=== PATIENT | male | born 1970 | race Caucasian/White ===

== ENCOUNTER 2021-07-14 09:38 | Inpatient (IN) | payer MEDICAID, OTHER ==
[~2021-07-14] VITALS: Ht 157.5 cm; Wt 41.7 kg
[2021-07-14] MEDS ORDERED: SODIUM CHLORIDE 0.9% 1000ML BAG (SEPSIS BOLUS) IV ONE (09:45)
[2021-07-14 10:07] LABS: HEMATOCRIT. 31.4 % (42.0-52.0); HEMOGLOBIN. 9.8 g/dL (14.0-18.0); MEAN CORPUSCULAR HEMOGLOBIN 26.8 pg (28.0-32.0); MEAN CORPUSCULAR VOLUME 85.5 fL (80.0-94.0); MEAN PLATELET VOLUME 7.7 fl (7.4-10.4); PLATELET 491 x1000/uL (130-400); RED BLOOD CELL COUNT 3.67 mill/uL (4.7-6.1); RED CELL DISTRIBUTION WIDTH 16.6 % (11.6-14.6)
[2021-07-14 10:14] LABS: CHLORIDE 88 mEq/L (98-107)
[2021-07-14 10:18] LABS: INR 1.2
[2021-07-14 10:22] LABS: CREATINE KINASE 80 IU/L (39-308)
[2021-07-14 10:40] LABS: PLATELET ESTIMATE INCREASED
[2021-07-14] MEDS ORDERED: PIPERACILLIN/TAZ 3.375G PREMIX 50 ML IV ONE (10:45)
[2021-07-14] MEDS ORDERED: VANCOMYCIN 1G PREMIX 200 ML IV ONE (10:45)
[2021-07-14] MEDS ORDERED: INSULIN REGULAR (HUMULIN R) 300UNITS/3ML VIAL IV ONE (11:45)
[2021-07-14 13:00] LABS: CLARITY URINE CLEAR (CLEAR); COLOR URINE YELLOW (YELLOW); KETONES URINE 1+ (NEGATIVE); LEUKOCYTE ESTERASE URINE 2+ (NEGATIVE); NITRITE URINE POSITIVE (NEGATIVE); OCCULT BLOOD URINE 2+ (NEGATIVE); PH URINE 5.5 (4.5-8.0); PROTEIN URINE 1+ (NEGATIVE); SPECIFIC GRAVITY URINE 1.017 (1.005-1.030); UROBILINOGEN URINE 0.2 E.U./dL (0.2-1.0)
[2021-07-14] MEDS ORDERED: ONDANSETRON HCL 4MG/2ML INJ IV PRN (14:15)
[2021-07-14] MEDS ORDERED: DOCUSATE SODIUM 100MG CAPSULE PO PRN (14:15)
[2021-07-14] MEDS ORDERED: MAGNESIUM/ALUMINUM HYDROXIDE/SIMETHICONE 30ML UDC PO PRN (14:15)
[2021-07-14] MEDS ORDERED: NITROGLYCERIN 0.4MG TABLET SL SL PRN (14:15)
[2021-07-14] MEDS ORDERED: IPRATROPIUM/ALBUTEROL 0.5-3(2.5)MG/3ML NEB NEB PRN (14:15)
[2021-07-14] MEDS ORDERED: GUAIFENESIN 200MG/10ML SUGAR FREE UDC PO PRN (14:15)
[2021-07-14] MEDS ORDERED: CLONIDINE 0.1MG TABLET PO PRN (14:15)
[2021-07-14] MEDS ORDERED: ZOLPIDEM TARTRATE 5MG TABLET PO PRN (14:15)
[2021-07-14] MEDS ORDERED: KETOROLAC 15MG/ML VIAL IV PRN (14:15)
[2021-07-14] MEDS ORDERED: DEXTROSE 50% WATER 50ML SYRINGE IV PRN (14:15)
[2021-07-14 14:51] LABS: T4 FREE 1.27 ng/dL (0.76-1.46)
[2021-07-14] MEDS: SODIUM CHLORIDE 0.9% 1,000 ML IV SCH (15:00)
[2021-07-14 15:05] LABS: FOLIC ACID (FOLATE) SERUM 17.5 ng/mL (>5.38)
[2021-07-14] MEDS ORDERED: ENOXAPARIN 40MG/0.4ML SYR SUBCUT SCH (15:30)
[2021-07-14] MEDS: INSULIN LISPRO 100 UNITS/ML SUBCUT SCH ×2 (18:20→21:00)
[2021-07-14] MEDS: BLOOD SUGAR DIAGNOSTIC STRIP TEST SCH ×2 (18:30→21:44)
[2021-07-14] MEDS: ASCORBIC ACID 500 MG TABLET PO SCH (21:51)
[2021-07-14] MEDS: FAMOTIDINE 20MG TABLET PO SCH (21:51)
[2021-07-14 22:00] VITALS: BP 143/85
[2021-07-14] MEDS ORDERED: PIPERACILLIN/TAZ 3.375G PREMIX 50 ML IV SCH (22:00)
[2021-07-14] MEDS ORDERED: VANCOMYCIN 500MG PREMIX 100 ML IV SCH (23:00)
[2021-07-15] VITALS: BP 121/73
[2021-07-15] MEDS: SODIUM CHLORIDE 0.9% 1,000 ML IV SCH ×3 (00:09→22:10)
[2021-07-15] MEDS: INSULIN GLARGINE 100 UNITS/ML SUBCUT SCH ×2 (00:24→23:36)
[2021-07-15 01:13] LABS: CREATINE KINASE 60 IU/L (39-308)
[2021-07-15 01:14] LABS: CREATINE KINASE MB FRACTION < 1.0 ng/mL (0.5-3.6)
[2021-07-15 04:00] VITALS: BP 127/78
[2021-07-15] MEDS: BLOOD SUGAR DIAGNOSTIC STRIP TEST SCH ×4 (06:04→21:30)
[2021-07-15] MEDS: INSULIN LISPRO 100 UNITS/ML SUBCUT SCH ×4 (06:04→22:13)
[2021-07-15 06:10] LABS: HEMATOCRIT. 25.4 % (42.0-52.0); HEMOGLOBIN. 8.4 g/dL (14.0-18.0); MEAN CORPUSCULAR HEMOGLOBIN 26.3 pg (28.0-32.0); MEAN CORPUSCULAR VOLUME 79.8 fL (80.0-94.0); MEAN PLATELET VOLUME 7.7 fl (7.4-10.4); PLATELET 393 x1000/uL (130-400); RED BLOOD CELL COUNT 3.18 mill/uL (4.7-6.1); RED CELL DISTRIBUTION WIDTH 16.2 % (11.6-14.6)
[2021-07-15 06:17] LABS: CHLORIDE 103 mEq/L (98-107)
[2021-07-15 06:28] LABS: PHOSPHORUS 2.1 mg/dL (2.5-4.9)
[2021-07-15 06:31] LABS: CREATINE KINASE 38 IU/L (39-308)
[2021-07-15 06:33] LABS: CREATINE KINASE MB FRACTION < 1.0 ng/mL (0.5-3.6)
[2021-07-15 07:58] LABS: *AMPHETAMINES SCREEN URINE NEGATIVE (NEGATIVE); *BARBITURATES SCREEN URINE NEGATIVE (NEGATIVE); *BENZODIAZEPINES SCREEN URINE NEGATIVE (NEGATIVE); METHADONE URINE SCREEN NEGATIVE (NEGATIVE); OPIATES URINE SCREEN NEGATIVE (NEGATIVE)
[2021-07-15 07:59] LABS: *COCAINE SCREEN URINE NEGATIVE (NEGATIVE); CANNABINOID URINE SCREEN NEGATIVE (NEGATIVE); PHENCYCLIDINE URINE SCREEN NEGATIVE (NEGATIVE)
[2021-07-15] MEDS: PIPERACILLIN/TAZOBACTAM 3.375 G in DEXTROSE 5% WATER 50 ML IV SCH ×3 (07:59→22:11)
[2021-07-15 08:00] VITALS: BP 120/78
[2021-07-15] MEDS: ZINC SULFATE 220 MG ( 50 ) CAPSULE PO SCH (08:01)
[2021-07-15] MEDS: ASPIRIN 325MG EC TABLET PO SCH (08:02)
[2021-07-15] MEDS: FAMOTIDINE 20MG TABLET PO SCH ×2 (08:02→22:10)
[2021-07-15] MEDS: ASCORBIC ACID 500 MG TABLET PO SCH ×2 (08:02→22:10)
[2021-07-15] MEDS: CHOLECALCIFEROL (D3) 1000 UNIT TABLET PO SCH (08:02)
[2021-07-15] MEDS: ENOXAPARIN 30MG/0.3ML SYR SUBCUT SCH (08:03)
[2021-07-15 08:51] LABS: PLATELET ESTIMATE NORMAL
[2021-07-15 12:00] VITALS: BP 125/80
[2021-07-15] MEDS: VANCOMYCIN 500MG PREMIX 100 ML IV SCH ×2 (12:37→18:14)
[2021-07-15 16:00] VITALS: BP 128/77
[2021-07-15] MEDS ORDERED: INFLUENZA VACCINE 05/PF 0.5 ML SYRINGE IM ONE (16:45)
[2021-07-15] MEDS ORDERED: PNEUMOCOCCAL 23-VAL P-SAC VAC 0.5 ML IM ONE (16:45)
[2021-07-15] MEDS ORDERED: POTASSIUM CHLORIDE 20MEQ TABLET SR PO NR (18:30)
[2021-07-15 20:00] VITALS: BP 121/68
[2021-07-16] VITALS: BP 128/70
[2021-07-16] MEDS: VANCOMYCIN 500MG PREMIX 100 ML IV SCH ×2 (01:30→10:17)
[2021-07-16 04:00] VITALS: BP 134/78
[2021-07-16] MEDS: PIPERACILLIN/TAZOBACTAM 3.375 G in DEXTROSE 5% WATER 50 ML IV SCH ×2 (05:28→14:29)
[2021-07-16] MEDS: BLOOD SUGAR DIAGNOSTIC STRIP TEST SCH ×4 (05:36→21:08)
[2021-07-16] MEDS: INSULIN LISPRO 100 UNITS/ML SUBCUT SCH ×4 (05:39→21:08)
[2021-07-16 06:50] LABS: HEMATOCRIT. 22.5 % (42.0-52.0); HEMOGLOBIN. 7.3 g/dL (14.0-18.0); MEAN CORPUSCULAR HEMOGLOBIN 25.8 pg (28.0-32.0); MEAN CORPUSCULAR VOLUME 79.2 fL (80.0-94.0); MEAN PLATELET VOLUME 7.2 fl (7.4-10.4); PLATELET 304 x1000/uL (130-400); RED BLOOD CELL COUNT 2.84 mill/uL (4.7-6.1); RED CELL DISTRIBUTION WIDTH 16.1 % (11.6-14.6)
[2021-07-16 07:24] LABS: CHLORIDE 102 mEq/L (98-107)
[2021-07-16 08:00] VITALS: BP 118/67
[2021-07-16] MEDS: FAMOTIDINE 20MG TABLET PO SCH ×2 (08:21→20:55)
[2021-07-16] MEDS: ZINC SULFATE 220 MG ( 50 ) CAPSULE PO SCH (08:21)
[2021-07-16] MEDS: ASCORBIC ACID 500 MG TABLET PO SCH ×2 (08:21→20:55)
[2021-07-16] MEDS: CHOLECALCIFEROL (D3) 1000 UNIT TABLET PO SCH (08:21)
[2021-07-16] MEDS: ASPIRIN 325MG EC TABLET PO SCH (08:21)
[2021-07-16] MEDS: ENOXAPARIN 30MG/0.3ML SYR SUBCUT SCH (08:22)
[2021-07-16 09:47] LABS: PLATELET ESTIMATE NORMAL
[2021-07-16] MEDS: SODIUM CHLORIDE 0.9% 1,000 ML IV SCH ×2 (10:17→15:49)
[2021-07-16] MEDS ORDERED: POTASSIUM CHLORIDE 20MEQ TABLET SR PO NR (11:30)
[2021-07-16] MEDS ORDERED: POTASSIUM CHLORIDE INJ 40 MEQ in DEXT 5% WATER 250 ML IV ONE (11:30)
[2021-07-16 12:05] VITALS: BP 127/70
[2021-07-16] MEDS: KCL 20MEQ/100ML X 2 FOR TOTAL KCL 40MEQ/200ML IV SCH ×2 (15:48→17:31)
[2021-07-16 16:00] VITALS: BP 127/80
[2021-07-16 20:00] VITALS: BP 132/77
[2021-07-16] MEDS: CEFAZOLIN 2,000 MG in DEXT 5% WATER 100 ML IV SCH (20:55)
[2021-07-16] MEDS: INSULIN GLARGINE 100 UNITS/ML SUBCUT SCH (23:00)
[2021-07-17] VITALS: BP 113/64
[2021-07-17] MEDS ORDERED: VANCOMYCIN 500MG PREMIX 100 ML IV SCH
[2021-07-17] MEDS: SODIUM CHLORIDE 0.9% 1,000 ML IV SCH ×2 (02:27→21:20)
[2021-07-17 04:00] VITALS: BP 131/80
[2021-07-17] MEDS: CEFAZOLIN 2,000 MG in DEXT 5% WATER 100 ML IV SCH ×3 (05:24→21:34)
[2021-07-17] MEDS: BLOOD SUGAR DIAGNOSTIC STRIP TEST SCH ×4 (05:46→21:34)
[2021-07-17] MEDS: INSULIN LISPRO 100 UNITS/ML SUBCUT SCH ×4 (05:46→21:00)
[2021-07-17 07:51] LABS: CHLORIDE 101 mEq/L (98-107)
[2021-07-17 08:00] VITALS: BP 142/92
[2021-07-17 08:38] LABS: HEMATOCRIT. 23.8 % (42.0-52.0); MEAN CORPUSCULAR HEMOGLOBIN 26.8 pg (28.0-32.0); MEAN PLATELET VOLUME 7.7 fl (7.4-10.4); PLATELET 342 x1000/uL (130-400); RED BLOOD CELL COUNT 2.98 mill/uL (4.7-6.1); RED CELL DISTRIBUTION WIDTH 15.8 % (11.6-14.6)
[2021-07-17] MEDS: CHOLECALCIFEROL (D3) 1000 UNIT TABLET PO SCH (08:49)
[2021-07-17] MEDS: ASPIRIN 325MG EC TABLET PO SCH (08:49)
[2021-07-17] MEDS: ZINC SULFATE 220 MG ( 50 ) CAPSULE PO SCH (08:49)
[2021-07-17] MEDS: ASCORBIC ACID 500 MG TABLET PO SCH ×2 (08:49→21:20)
[2021-07-17] MEDS: FAMOTIDINE 20MG TABLET PO SCH ×2 (08:49→21:20)
[2021-07-17] MEDS: ACETAMINOPHEN 325MG TABLET PO PRN (08:49)
[2021-07-17] MEDS: ENOXAPARIN 30MG/0.3ML SYR SUBCUT SCH (08:50)
[2021-07-17] MEDS ORDERED: POTASSIUM CHLORIDE 20MEQ/PACKET PO SCH (10:00)
[2021-07-17 12:00] VITALS: BP 136/88
[2021-07-17] MEDS ORDERED: POTASSIUM PHOS,M-BASIC-D-BASIC 20 MMOL in DEXT 5% WATER 250 ML IV SCH (12:00)
[2021-07-17 12:05] LABS: PLATELET ESTIMATE NORMAL
[2021-07-17 13:07] LABS: A/G RATIO 0.3 (0.7-1.7); ALBUMIN 1.7 g/dL (2.9-4.4); ALPHA-1-GLOBULIN 0.4 g/dL (0.0-0.4); ALPHA-2-GLOBULIN 0.8 g/dL (0.4-1.0); BETA GLOBULIN 1.1 g/dL (0.7-1.3); GAMMA GLOBULINS 2.9 g/dL (0.4-1.8); GLOBULIN TOTAL 5.3 g/dL (2.2-3.9); M-SPIKE Not Observed g/dL (Not Observed)
[2021-07-17 16:00] VITALS: BP 114/70
[2021-07-17 20:00] VITALS: BP 121/74
[2021-07-17] MEDS: INSULIN GLARGINE 100 UNITS/ML SUBCUT SCH (21:32)
[2021-07-18] VITALS: BP 133/77
[2021-07-18 04:00] VITALS: BP 116/71
[2021-07-18] MEDS: CEFAZOLIN 2,000 MG in DEXT 5% WATER 100 ML IV SCH ×3 (05:52→22:20)
[2021-07-18] MEDS: BLOOD SUGAR DIAGNOSTIC STRIP TEST SCH ×4 (06:03→20:30)
[2021-07-18] MEDS: INSULIN LISPRO 100 UNITS/ML SUBCUT SCH ×4 (06:03→20:30)
[2021-07-18 06:13] LABS: HIV SCREEN 4G Non Reactive (Non Reactive)
[2021-07-18 07:04] LABS: BASOPHILS % 0.2 % (0.0-2.0); EOSINOPHILS % 0.5 % (0.0-5.0); HEMATOCRIT. 23.1 % (42.0-52.0); HEMOGLOBIN. 7.8 g/dL (14.0-18.0); LYMPHOCYTES % 11.8 % (20.0-50.0); MEAN CORPUSCULAR HEMOGLOBIN 26.9 pg (28.0-32.0); MEAN CORPUSCULAR VOLUME 79.3 fL (80.0-94.0); MEAN PLATELET VOLUME 7.2 fl (7.4-10.4); MONOCYTES % 9.1 % (2.0-8.0); NEUTROPHILS % 78.4 % (40.0-76.0); PLATELET 356 x1000/uL (130-400); RED BLOOD CELL COUNT 2.91 mill/uL (4.7-6.1); RED CELL DISTRIBUTION WIDTH 16.1 % (11.6-14.6)
[2021-07-18 07:42] LABS: CHLORIDE 104 mEq/L (98-107)
[2021-07-18 07:51] LABS: PHOSPHORUS 2.1 mg/dL (2.5-4.9)
[2021-07-18 08:00] VITALS: BP 124/72
[2021-07-18] MEDS: SODIUM CHLORIDE 0.9% 1,000 ML IV SCH ×2 (08:14→17:16)
[2021-07-18] MEDS: ZINC SULFATE 220 MG ( 50 ) CAPSULE PO SCH (08:15)
[2021-07-18] MEDS: ASPIRIN 325MG EC TABLET PO SCH (08:15)
[2021-07-18] MEDS: CHOLECALCIFEROL (D3) 1000 UNIT TABLET PO SCH (08:15)
[2021-07-18] MEDS: ASCORBIC ACID 500 MG TABLET PO SCH ×2 (08:15→20:30)
[2021-07-18] MEDS: FAMOTIDINE 20MG TABLET PO SCH ×2 (08:15→20:30)
[2021-07-18] MEDS: ENOXAPARIN 30MG/0.3ML SYR SUBCUT SCH (08:16)
[2021-07-18 12:00] VITALS: BP 132/82
[2021-07-18 16:00] VITALS: BP 135/81
[2021-07-18] MEDS ORDERED: [UNRECOGNIZED DRUG - OTHER] XX SCH (16:00)
[2021-07-18 20:00] VITALS: BP 117/71
[2021-07-18] MEDS: INSULIN GLARGINE 100 UNITS/ML SUBCUT SCH (22:54)
[2021-07-19] VITALS: BP 134/78
[2021-07-19] MEDS: SODIUM CHLORIDE 0.9% 1,000 ML IV SCH ×2 (03:01→14:24)
[2021-07-19] MEDS: CEFAZOLIN 2,000 MG in DEXT 5% WATER 100 ML IV SCH ×3 (06:12→21:46)
[2021-07-19] MEDS: BLOOD SUGAR DIAGNOSTIC STRIP TEST SCH ×4 (06:12→21:47)
[2021-07-19] MEDS: INSULIN LISPRO 100 UNITS/ML SUBCUT SCH ×4 (07:40→21:00)
[2021-07-19 08:00] VITALS: BP 127/81
[2021-07-19] MEDS: FAMOTIDINE 20MG TABLET PO SCH ×2 (08:52→21:46)
[2021-07-19] MEDS: ZINC SULFATE 220 MG ( 50 ) CAPSULE PO SCH (08:52)
[2021-07-19] MEDS: ASPIRIN 325MG EC TABLET PO SCH (08:52)
[2021-07-19] MEDS: CHOLECALCIFEROL (D3) 1000 UNIT TABLET PO SCH (08:52)
[2021-07-19] MEDS: ASCORBIC ACID 500 MG TABLET PO SCH ×2 (08:52→21:46)
[2021-07-19] MEDS: ENOXAPARIN 30MG/0.3ML SYR SUBCUT SCH (08:53)
[2021-07-19 12:00] VITALS: BP 132/82
[2021-07-19 16:00] VITALS: BP 125/76
[2021-07-19 20:00] VITALS: BP 121/72
[2021-07-19] MEDS: INSULIN GLARGINE 100 UNITS/ML SUBCUT SCH (21:48)
[2021-07-20] VITALS: BP 130/79
[2021-07-20] MEDS: SODIUM CHLORIDE 0.9% 1,000 ML IV SCH ×3 (00:57→22:38)
[2021-07-20 04:00] VITALS: BP 126/72
[2021-07-20] MEDS: CEFAZOLIN 2,000 MG in DEXT 5% WATER 100 ML IV SCH ×3 (06:13→21:21)
[2021-07-20] MEDS: INSULIN LISPRO 100 UNITS/ML SUBCUT SCH ×4 (06:26→21:00)
[2021-07-20] MEDS: BLOOD SUGAR DIAGNOSTIC STRIP TEST SCH ×4 (06:26→21:09)
[2021-07-20 07:01] LABS: BASOPHILS % 0.3 % (0.0-2.0); EOSINOPHILS % 0.5 % (0.0-5.0); HEMATOCRIT. 21.9 % (42.0-52.0); HEMOGLOBIN. 7.3 g/dL (14.0-18.0); LYMPHOCYTES % 13.6 % (20.0-50.0); MEAN CORPUSCULAR HEMOGLOBIN 26.8 pg (28.0-32.0); MEAN CORPUSCULAR VOLUME 80.1 fL (80.0-94.0); MEAN PLATELET VOLUME 6.9 fl (7.4-10.4); MONOCYTES % 9.1 % (2.0-8.0); NEUTROPHILS % 76.5 % (40.0-76.0); PLATELET 464 x1000/uL (130-400); RED BLOOD CELL COUNT 2.74 mill/uL (4.7-6.1); RED CELL DISTRIBUTION WIDTH 16.2 % (11.6-14.6)
[2021-07-20 07:02] LABS: CHLORIDE 105 mEq/L (98-107)
[2021-07-20 08:00] VITALS: BP 130/73
[2021-07-20] MEDS: ASPIRIN 325MG EC TABLET PO SCH (09:10)
[2021-07-20] MEDS: ENOXAPARIN 30MG/0.3ML SYR SUBCUT SCH (09:11)
[2021-07-20] MEDS: FAMOTIDINE 20MG TABLET PO SCH ×2 (09:11→21:21)
[2021-07-20] MEDS: ASCORBIC ACID 500 MG TABLET PO SCH ×2 (09:11→21:22)
[2021-07-20] MEDS: CHOLECALCIFEROL (D3) 1000 UNIT TABLET PO SCH (09:11)
[2021-07-20] MEDS: ZINC SULFATE 220 MG ( 50 ) CAPSULE PO SCH (09:11)
[2021-07-20] MEDS: POTASSIUM CHLORIDE 20MEQ TABLET SR PO SCH (09:33)
[2021-07-20 12:00] VITALS: BP 131/80
[2021-07-20 16:00] VITALS: BP 132/75
[2021-07-20 20:00] VITALS: BP 124/79
[2021-07-20] MEDS: INSULIN GLARGINE 100 UNITS/ML SUBCUT SCH (21:58)
[2021-07-21] VITALS: BP 133/82
[2021-07-21 04:00] VITALS: BP 138/84
[2021-07-21] MEDS: CEFAZOLIN 2,000 MG in DEXT 5% WATER 100 ML IV SCH ×3 (05:58→21:32)
[2021-07-21] MEDS: BLOOD SUGAR DIAGNOSTIC STRIP TEST SCH ×4 (05:59→21:24)
[2021-07-21] MEDS: SODIUM CHLORIDE 0.9% 1,000 ML IV SCH ×2 (05:59→16:16)
[2021-07-21 06:12] LABS: BASOPHILS % 0.2 % (0.0-2.0); EOSINOPHILS % 0.6 % (0.0-5.0); HEMATOCRIT. 22.1 % (42.0-52.0); HEMOGLOBIN. 7.4 g/dL (14.0-18.0); LYMPHOCYTES % 11.3 % (20.0-50.0); MEAN CORPUSCULAR HEMOGLOBIN 27.1 pg (28.0-32.0); MEAN CORPUSCULAR VOLUME 80.2 fL (80.0-94.0); MEAN PLATELET VOLUME 6.9 fl (7.4-10.4); MONOCYTES % 8.3 % (2.0-8.0); NEUTROPHILS % 79.6 % (40.0-76.0); PLATELET 520 x1000/uL (130-400); RED BLOOD CELL COUNT 2.75 mill/uL (4.7-6.1); RED CELL DISTRIBUTION WIDTH 16.4 % (11.6-14.6)
[2021-07-21] MEDS: INSULIN LISPRO 100 UNITS/ML SUBCUT SCH ×4 (06:32→21:33)
[2021-07-21 08:00] VITALS: BP 129/77
[2021-07-21] MEDS: POTASSIUM CHLORIDE 20MEQ TABLET SR PO SCH (08:45)
[2021-07-21] MEDS: FAMOTIDINE 20MG TABLET PO SCH ×2 (08:45→21:32)
[2021-07-21] MEDS: ASCORBIC ACID 500 MG TABLET PO SCH ×2 (08:45→21:32)
[2021-07-21] MEDS: ASPIRIN 325MG EC TABLET PO SCH (08:45)
[2021-07-21] MEDS: CHOLECALCIFEROL (D3) 1000 UNIT TABLET PO SCH (08:45)
[2021-07-21] MEDS: ENOXAPARIN 30MG/0.3ML SYR SUBCUT SCH (08:45)
[2021-07-21] MEDS: ZINC SULFATE 220 MG ( 50 ) CAPSULE PO SCH (08:48)
[2021-07-21 09:19] LABS: CHLORIDE 103 mEq/L (98-107)
[2021-07-21 12:00] VITALS: BP 155/82
[2021-07-21 16:00] VITALS: BP 146/83
[2021-07-21 20:00] VITALS: BP 121/76
[2021-07-21] MEDS: INSULIN GLARGINE 100 UNITS/ML SUBCUT SCH (21:33)
[2021-07-22] VITALS: BP 148/46
[2021-07-22] MEDS: SODIUM CHLORIDE 0.9% 1,000 ML IV SCH ×3 (02:22→22:55)
[2021-07-22 04:00] VITALS: BP 137/86
[2021-07-22] MEDS: CEFAZOLIN 2,000 MG in DEXT 5% WATER 100 ML IV SCH ×3 (05:28→21:45)
[2021-07-22] MEDS: BLOOD SUGAR DIAGNOSTIC STRIP TEST SCH ×4 (06:02→21:45)
[2021-07-22] MEDS: INSULIN LISPRO 100 UNITS/ML SUBCUT SCH ×4 (06:02→21:00)
[2021-07-22 08:00] VITALS: BP 116/72
[2021-07-22] MEDS: CHOLECALCIFEROL (D3) 1000 UNIT TABLET PO SCH (09:01)
[2021-07-22] MEDS: ASCORBIC ACID 500 MG TABLET PO SCH ×2 (09:01→21:45)
[2021-07-22] MEDS: FAMOTIDINE 20MG TABLET PO SCH ×2 (09:01→21:45)
[2021-07-22] MEDS: ZINC SULFATE 220 MG ( 50 ) CAPSULE PO SCH (09:01)
[2021-07-22] MEDS: ENOXAPARIN 30MG/0.3ML SYR SUBCUT SCH (09:02)
[2021-07-22] MEDS: ASPIRIN 325MG EC TABLET PO SCH (09:02)
[2021-07-22 12:00] VITALS: BP 124/79
[2021-07-22 16:00] VITALS: BP 135/78
[2021-07-22 20:00] VITALS: BP 129/77
[2021-07-22] MEDS: INSULIN GLARGINE 100 UNITS/ML SUBCUT SCH (22:00)
[2021-07-23] VITALS (7 sets, daily range): BP systolic 106–148; BP diastolic 66–85
[2021-07-23] MEDS: CEFAZOLIN 2,000 MG in DEXT 5% WATER 100 ML IV SCH ×3 (05:34→21:49)
[2021-07-23] MEDS: BLOOD SUGAR DIAGNOSTIC STRIP TEST SCH ×4 (05:48→21:00)
[2021-07-23] MEDS: INSULIN LISPRO 100 UNITS/ML SUBCUT SCH ×4 (05:48→21:59)
[2021-07-23 06:38] LABS: CHLORIDE 99 mEq/L (98-107)
[2021-07-23 06:45] LABS: BASOPHILS % 0.4 % (0.0-2.0); EOSINOPHILS % 0.2 % (0.0-5.0); HEMATOCRIT. 21.6 % (42.0-52.0); HEMOGLOBIN. 7.1 g/dL (14.0-18.0); LYMPHOCYTES % 15.5 % (20.0-50.0); MEAN CORPUSCULAR HEMOGLOBIN 26.8 pg (28.0-32.0); MEAN CORPUSCULAR VOLUME 81.6 fL (80.0-94.0); MEAN PLATELET VOLUME 6.4 fl (7.4-10.4); MONOCYTES % 6.4 % (2.0-8.0); NEUTROPHILS % 77.5 % (40.0-76.0); PLATELET 636 x1000/uL (130-400); RED BLOOD CELL COUNT 2.65 mill/uL (4.7-6.1); RED CELL DISTRIBUTION WIDTH 16.1 % (11.6-14.6)
[2021-07-23] MEDS: ASPIRIN 325MG EC TABLET PO SCH (08:59)
[2021-07-23] MEDS: FAMOTIDINE 20MG TABLET PO SCH ×2 (08:59→21:49)
[2021-07-23] MEDS: CHOLECALCIFEROL (D3) 1000 UNIT TABLET PO SCH (08:59)
[2021-07-23] MEDS: ZINC SULFATE 220 MG ( 50 ) CAPSULE PO SCH (08:59)
[2021-07-23] MEDS: ASCORBIC ACID 500 MG TABLET PO SCH ×2 (08:59→21:49)
[2021-07-23] MEDS: ENOXAPARIN 30MG/0.3ML SYR SUBCUT SCH (09:00)
[2021-07-23] MEDS ORDERED: MIDAZOLAM HCL 2 MG/2 ML VIAL ONE ×2 (10:53→11:12)
[2021-07-23] MEDS ORDERED: FENTANYL CITRATE/PF 50MCG/ML 2ML VIAL ONE (10:53)
[2021-07-23] MEDS ORDERED: LIDOCAINE HCL 2% JELLY 5ML ONE (11:05)
[2021-07-23] MEDS ORDERED: TETRACAINE/BENZOCAINE/BUTAMBEN 20 GM SPRAY MM ONE (11:05)
[2021-07-23] MEDS: SODIUM CHLORIDE 0.9% 1,000 ML IV SCH (16:21)
[2021-07-23] MEDS: INSULIN GLARGINE 100 UNITS/ML SUBCUT SCH (22:00)
[2021-07-24 04:00] VITALS: BP 114/76
[2021-07-24] MEDS: CEFAZOLIN 2,000 MG in DEXT 5% WATER 100 ML IV SCH ×3 (05:01→21:40)
[2021-07-24] MEDS: BLOOD SUGAR DIAGNOSTIC STRIP TEST SCH ×4 (07:10→20:27)
[2021-07-24 08:00] VITALS: BP 114/76
[2021-07-24] MEDS: ASPIRIN 325MG EC TABLET PO SCH (09:11)
[2021-07-24] MEDS: ASCORBIC ACID 500 MG TABLET PO SCH ×2 (09:11→20:26)
[2021-07-24] MEDS: ENOXAPARIN 30MG/0.3ML SYR SUBCUT SCH (09:11)
[2021-07-24] MEDS: FAMOTIDINE 20MG TABLET PO SCH ×2 (09:11→20:26)
[2021-07-24] MEDS: CHOLECALCIFEROL (D3) 1000 UNIT TABLET PO SCH (09:11)
[2021-07-24] MEDS: INSULIN LISPRO 100 UNITS/ML SUBCUT SCH ×4 (09:12→20:27)
[2021-07-24] MEDS: ZINC SULFATE 220 MG ( 50 ) CAPSULE PO SCH (09:13)
[2021-07-24 12:00] VITALS: BP 121/75
[2021-07-24 16:00] VITALS: BP 134/83
[2021-07-24] MEDS: SODIUM CHLORIDE 0.9% 1,000 ML IV SCH (16:55)
[2021-07-24 20:00] VITALS: BP 128/82
[2021-07-24] MEDS: INSULIN GLARGINE 100 UNITS/ML SUBCUT SCH (21:42)
[2021-07-25] VITALS (11 sets, daily range): BP systolic 109–131; BP diastolic 69–80
[2021-07-25] MEDS: SODIUM CHLORIDE 0.9% 1,000 ML IV SCH ×3 (03:46→20:20)
[2021-07-25] MEDS: CEFAZOLIN 2,000 MG in DEXT 5% WATER 100 ML IV SCH ×3 (05:22→21:47)
[2021-07-25] MEDS: INSULIN LISPRO 100 UNITS/ML SUBCUT SCH ×4 (06:34→20:53)
[2021-07-25] MEDS: BLOOD SUGAR DIAGNOSTIC STRIP TEST SCH ×4 (06:34→20:53)
[2021-07-25 07:02] LABS: BASOPHILS % 0.4 % (0.0-2.0); EOSINOPHILS % 0.4 % (0.0-5.0); LYMPHOCYTES % 18.3 % (20.0-50.0); MEAN CORPUSCULAR VOLUME 80.3 fL (80.0-94.0); MEAN PLATELET VOLUME 6.1 fl (7.4-10.4); MONOCYTES % 5.8 % (2.0-8.0); NEUTROPHILS % 75.1 % (40.0-76.0); PLATELET 589 x1000/uL (130-400); RED BLOOD CELL COUNT 2.41 mill/uL (4.7-6.1); RED CELL DISTRIBUTION WIDTH 16.3 % (11.6-14.6)
[2021-07-25 07:08] LABS: CHLORIDE 101 mEq/L (98-107)
[2021-07-25 08:46] LABS: HEMATOCRIT. 19.4 % (42.0-52.0); HEMOGLOBIN. 6.5 g/dL (14.0-18.0)
[2021-07-25] MEDS: ZINC SULFATE 220 MG ( 50 ) CAPSULE PO SCH (09:30)
[2021-07-25] MEDS: ASCORBIC ACID 500 MG TABLET PO SCH ×2 (09:30→20:53)
[2021-07-25] MEDS: ASPIRIN 325MG EC TABLET PO SCH (09:30)
[2021-07-25] MEDS: FAMOTIDINE 20MG TABLET PO SCH ×2 (09:30→20:53)
[2021-07-25] MEDS: CHOLECALCIFEROL (D3) 1000 UNIT TABLET PO SCH (09:31)
[2021-07-25] MEDS: ENOXAPARIN 30MG/0.3ML SYR SUBCUT SCH (09:32)
[2021-07-25] MEDS: INSULIN GLARGINE 100 UNITS/ML SUBCUT SCH (21:48)
[2021-07-26 00:20] VITALS: BP 128/78
[2021-07-26] MEDS: ACETAMINOPHEN 325MG TABLET PO PRN ×2 (04:40→16:42)
[2021-07-26 04:41] VITALS: BP 131/81
[2021-07-26] MEDS: CEFAZOLIN 2,000 MG in DEXT 5% WATER 100 ML IV SCH ×3 (06:26→21:18)
[2021-07-26] MEDS: BLOOD SUGAR DIAGNOSTIC STRIP TEST SCH ×4 (06:26→21:18)
[2021-07-26] MEDS: INSULIN LISPRO 100 UNITS/ML SUBCUT SCH ×4 (06:26→21:20)
[2021-07-26] MEDS: SODIUM CHLORIDE 0.9% 1,000 ML IV SCH ×2 (06:28→16:44)
[2021-07-26 07:39] LABS: BASOPHILS % 0.6 % (0.0-2.0); EOSINOPHILS % 0.4 % (0.0-5.0); HEMATOCRIT. 23.9 % (42.0-52.0); LYMPHOCYTES % 14.1 % (20.0-50.0); MEAN CORPUSCULAR VOLUME 80.8 fL (80.0-94.0); MEAN PLATELET VOLUME 6.1 fl (7.4-10.4); MONOCYTES % 5.5 % (2.0-8.0); NEUTROPHILS % 79.4 % (40.0-76.0); PLATELET 541 x1000/uL (130-400); RED BLOOD CELL COUNT 2.96 mill/uL (4.7-6.1); RED CELL DISTRIBUTION WIDTH 15.3 % (11.6-14.6)
[2021-07-26 08:00] VITALS: BP 130/79
[2021-07-26 08:03] LABS: HEMOGLOBIN. 8.3 g/dL (14.0-18.0)
[2021-07-26] MEDS: ASPIRIN 325MG EC TABLET PO SCH (09:01)
[2021-07-26] MEDS: ZINC SULFATE 220 MG ( 50 ) CAPSULE PO SCH (09:01)
[2021-07-26] MEDS: ENOXAPARIN 30MG/0.3ML SYR SUBCUT SCH (09:01)
[2021-07-26] MEDS: ASCORBIC ACID 500 MG TABLET PO SCH ×2 (09:01→21:18)
[2021-07-26] MEDS: FAMOTIDINE 20MG TABLET PO SCH ×2 (09:01→21:18)
[2021-07-26] MEDS: CHOLECALCIFEROL (D3) 1000 UNIT TABLET PO SCH (09:01)
[2021-07-26 12:00] VITALS: BP 145/81
[2021-07-26 16:00] VITALS: BP 142/82
[2021-07-26 20:00] VITALS: BP 129/79
[2021-07-26] MEDS: INSULIN GLARGINE 100 UNITS/ML SUBCUT SCH (21:18)
[2021-07-27] VITALS: BP 139/83
[2021-07-27] MEDS: SODIUM CHLORIDE 0.9% 1,000 ML IV SCH ×2 (01:57→12:03)
[2021-07-27 04:00] VITALS: BP 123/78
[2021-07-27] MEDS: CEFAZOLIN 2,000 MG in DEXT 5% WATER 100 ML IV SCH ×3 (05:40→22:07)
[2021-07-27] MEDS: BLOOD SUGAR DIAGNOSTIC STRIP TEST SCH ×4 (05:40→21:00)
[2021-07-27] MEDS: INSULIN LISPRO 100 UNITS/ML SUBCUT SCH ×4 (05:49→21:47)
[2021-07-27 08:00] VITALS: BP 136/83
[2021-07-27] MEDS: ASPIRIN 325MG EC TABLET PO SCH (08:50)
[2021-07-27] MEDS: FAMOTIDINE 20MG TABLET PO SCH ×2 (08:50→20:38)
[2021-07-27] MEDS: ACETAMINOPHEN 325MG TABLET PO PRN (08:50)
[2021-07-27] MEDS: CHOLECALCIFEROL (D3) 1000 UNIT TABLET PO SCH (08:50)
[2021-07-27] MEDS: ZINC SULFATE 220 MG ( 50 ) CAPSULE PO SCH (08:50)
[2021-07-27] MEDS: ASCORBIC ACID 500 MG TABLET PO SCH ×2 (08:50→20:38)
[2021-07-27] MEDS: ENOXAPARIN 30MG/0.3ML SYR SUBCUT SCH (08:51)
[2021-07-27 12:00] VITALS: BP 135/87
[2021-07-27 16:00] VITALS: BP 150/85
[2021-07-27 20:00] VITALS: BP 138/86
[2021-07-27] MEDS: INSULIN GLARGINE 100 UNITS/ML SUBCUT SCH (22:15)
[2021-07-28] VITALS: BP 124/77
[2021-07-28 04:00] VITALS: BP 116/81
[2021-07-28] MEDS: CEFAZOLIN 2,000 MG in DEXT 5% WATER 100 ML IV SCH ×3 (05:05→21:10)
[2021-07-28 07:22] LABS: BASOPHILS % 0.5 % (0.0-2.0); EOSINOPHILS % 0.5 % (0.0-5.0); HEMOGLOBIN. 8.6 g/dL (14.0-18.0); LYMPHOCYTES % 15.5 % (20.0-50.0); MEAN CORPUSCULAR HEMOGLOBIN 27.8 pg (28.0-32.0); MEAN CORPUSCULAR VOLUME 80.7 fL (80.0-94.0); MEAN PLATELET VOLUME 6.1 fl (7.4-10.4); MONOCYTES % 7.2 % (2.0-8.0); NEUTROPHILS % 76.3 % (40.0-76.0); PLATELET 573 x1000/uL (130-400); RED CELL DISTRIBUTION WIDTH 15.4 % (11.6-14.6)
[2021-07-28] MEDS: INSULIN LISPRO 100 UNITS/ML SUBCUT SCH ×4 (07:40→21:00)
[2021-07-28 07:42] LABS: CHLORIDE 99 mEq/L (98-107)
[2021-07-28 08:00] VITALS: BP 134/90
[2021-07-28] MEDS: ASCORBIC ACID 500 MG TABLET PO SCH ×2 (09:41→21:10)
[2021-07-28] MEDS: FAMOTIDINE 20MG TABLET PO SCH ×2 (09:41→21:10)
[2021-07-28] MEDS: ASPIRIN 325MG EC TABLET PO SCH (09:41)
[2021-07-28] MEDS: ZINC SULFATE 220 MG ( 50 ) CAPSULE PO SCH (09:41)
[2021-07-28] MEDS: ENOXAPARIN 30MG/0.3ML SYR SUBCUT SCH (09:42)
[2021-07-28] MEDS: CHOLECALCIFEROL (D3) 1000 UNIT TABLET PO SCH (09:42)
[2021-07-28] MEDS: SODIUM CHLORIDE 0.9% 1,000 ML IV SCH ×2 (09:51→21:16)
[2021-07-28 12:00] VITALS: BP 121/82
[2021-07-28] MEDS: BLOOD SUGAR DIAGNOSTIC STRIP TEST SCH ×3 (12:46→21:00)
[2021-07-28 16:08] VITALS: BP 152/89
[2021-07-28 20:16] VITALS: BP 147/87
[2021-07-28] MEDS: INSULIN GLARGINE 100 UNITS/ML SUBCUT SCH (21:11)
[2021-07-29] VITALS: BP 133/77
[2021-07-29 04:00] VITALS: BP 141/73
[2021-07-29] MEDS: CEFAZOLIN 2,000 MG in DEXT 5% WATER 100 ML IV SCH ×2 (05:45→14:25)
[2021-07-29] MEDS: INSULIN LISPRO 100 UNITS/ML SUBCUT SCH ×4 (06:43→21:12)
[2021-07-29] MEDS: BLOOD SUGAR DIAGNOSTIC STRIP TEST SCH ×4 (06:43→21:00)
[2021-07-29 08:00] VITALS: BP 145/89
[2021-07-29] MEDS: ZINC SULFATE 220 MG ( 50 ) CAPSULE PO SCH (08:33)
[2021-07-29] MEDS: ASCORBIC ACID 500 MG TABLET PO SCH ×2 (08:34→21:10)
[2021-07-29] MEDS: FAMOTIDINE 20MG TABLET PO SCH ×2 (08:34→21:10)
[2021-07-29] MEDS: ASPIRIN 325MG EC TABLET PO SCH (08:34)
[2021-07-29] MEDS: ENOXAPARIN 30MG/0.3ML SYR SUBCUT SCH (08:34)
[2021-07-29] MEDS: CHOLECALCIFEROL (D3) 1000 UNIT TABLET PO SCH (08:34)
[2021-07-29 12:00] VITALS: BP 144/89
[2021-07-29] MEDS: SODIUM CHLORIDE 0.9% 1,000 ML IV SCH (14:15)
[2021-07-29 16:00] VITALS: BP 154/94
[2021-07-29 20:00] VITALS: BP 128/92
[2021-07-29] MEDS: INSULIN GLARGINE 100 UNITS/ML SUBCUT SCH (21:11)
[2021-07-29] MEDS ORDERED: NALOXONE HCL 0.4MG/ML VIAL IV PRN (21:15)
[2021-07-30] VITALS: BP 123/84
[2021-07-30] MEDS: SODIUM CHLORIDE 0.9% 1,000 ML IV SCH ×3 (00:15→22:07)
[2021-07-30 04:00] VITALS: BP 141/90
[2021-07-30] MEDS: BLOOD SUGAR DIAGNOSTIC STRIP TEST SCH ×4 (06:34→21:00)
[2021-07-30] MEDS: INSULIN LISPRO 100 UNITS/ML SUBCUT SCH ×4 (06:35→22:08)
[2021-07-30 08:00] VITALS: BP 130/84
[2021-07-30] MEDS: ASPIRIN 325MG EC TABLET PO SCH (09:11)
[2021-07-30] MEDS: ASCORBIC ACID 500 MG TABLET PO SCH ×2 (09:11→22:07)
[2021-07-30] MEDS: ENOXAPARIN 30MG/0.3ML SYR SUBCUT SCH (09:11)
[2021-07-30] MEDS: ZINC SULFATE 220 MG ( 50 ) CAPSULE PO SCH (09:11)
[2021-07-30] MEDS: FAMOTIDINE 20MG TABLET PO SCH ×2 (09:11→22:07)
[2021-07-30] MEDS: CHOLECALCIFEROL (D3) 1000 UNIT TABLET PO SCH (09:23)
[2021-07-30 12:00] VITALS: BP 143/85
[2021-07-30 16:00] VITALS: BP 150/88
[2021-07-30 20:00] VITALS: BP 146/87
[2021-07-30] MEDS: INSULIN GLARGINE 100 UNITS/ML SUBCUT SCH (22:09)
[2021-07-31] VITALS: BP 147/92
[2021-07-31 04:00] VITALS: BP 144/84
[2021-07-31] MEDS: SODIUM CHLORIDE 0.9% 1,000 ML IV SCH ×2 (06:10→18:00)
[2021-07-31] MEDS: BLOOD SUGAR DIAGNOSTIC STRIP TEST SCH ×4 (07:10→21:00)
[2021-07-31] MEDS: INSULIN LISPRO 100 UNITS/ML SUBCUT SCH ×4 (07:13→21:58)
[2021-07-31 08:00] VITALS: BP 132/82
[2021-07-31 08:10] LABS: EOSINOPHILS % 0.8 % (0.0-5.0); HEMATOCRIT. 25.7 % (42.0-52.0); HEMOGLOBIN. 8.6 g/dL (14.0-18.0); LYMPHOCYTES % 17.2 % (20.0-50.0); MEAN CORPUSCULAR HEMOGLOBIN 27.6 pg (28.0-32.0); MEAN CORPUSCULAR VOLUME 82.3 fL (80.0-94.0); MEAN PLATELET VOLUME 6.1 fl (7.4-10.4); MONOCYTES % 6.5 % (2.0-8.0); NEUTROPHILS % 74.5 % (40.0-76.0); PLATELET 522 x1000/uL (130-400); RED BLOOD CELL COUNT 3.13 mill/uL (4.7-6.1); RED CELL DISTRIBUTION WIDTH 16.4 % (11.6-14.6)
[2021-07-31 08:31] LABS: CHLORIDE 104 mEq/L (98-107)
[2021-07-31] MEDS: ENOXAPARIN 30MG/0.3ML SYR SUBCUT SCH (09:23)
[2021-07-31] MEDS: ASCORBIC ACID 500 MG TABLET PO SCH ×2 (09:23→21:22)
[2021-07-31] MEDS: CHOLECALCIFEROL (D3) 1000 UNIT TABLET PO SCH (09:23)
[2021-07-31] MEDS: FAMOTIDINE 20MG TABLET PO SCH ×2 (09:23→21:22)
[2021-07-31] MEDS: ASPIRIN 325MG EC TABLET PO SCH (09:23)
[2021-07-31] MEDS: ZINC SULFATE 220 MG ( 50 ) CAPSULE PO SCH (09:23)
[2021-07-31 12:00] VITALS: BP 137/90
[2021-07-31 16:00] VITALS: BP 130/90
[2021-07-31] MEDS ORDERED: CEFAZOLIN 2,000 MG in DEXT 5% WATER 100 ML IV SCH (18:00)
[2021-07-31 20:00] VITALS: BP 137/83
[2021-07-31] MEDS: CEFAZOLIN 2,000 MG in DEXT 5% WATER 100 ML IV SCH (21:56)
[2021-07-31] MEDS: INSULIN GLARGINE 100 UNITS/ML SUBCUT SCH (21:59)
[2021-08-01] VITALS: BP 119/80
[2021-08-01 04:07] VITALS: BP 126/82
[2021-08-01] MEDS: CEFAZOLIN 2,000 MG in DEXT 5% WATER 100 ML IV SCH ×3 (05:50→22:28)
[2021-08-01] MEDS: SODIUM CHLORIDE 0.9% 1,000 ML IV SCH ×3 (05:54→22:30)
[2021-08-01] MEDS: BLOOD SUGAR DIAGNOSTIC STRIP TEST SCH ×4 (07:10→21:24)
[2021-08-01 08:00] VITALS: BP_SYST 136; BP_SYST 139; BP_DIAS 82; BP_DIAS 87
[2021-08-01] MEDS: ASPIRIN 325MG EC TABLET PO SCH (08:42)
[2021-08-01] MEDS: ASCORBIC ACID 500 MG TABLET PO SCH ×2 (08:42→21:24)
[2021-08-01] MEDS: ZINC SULFATE 220 MG ( 50 ) CAPSULE PO SCH (08:42)
[2021-08-01] MEDS: ENOXAPARIN 30MG/0.3ML SYR SUBCUT SCH (08:42)
[2021-08-01] MEDS: FAMOTIDINE 20MG TABLET PO SCH ×2 (08:42→21:24)
[2021-08-01] MEDS: INSULIN LISPRO 100 UNITS/ML SUBCUT SCH ×4 (09:03→21:00)
[2021-08-01 12:00] VITALS: BP 136/82
[2021-08-01] MEDS: CHOLECALCIFEROL (D3) 1000 UNIT TABLET PO SCH (12:02)
[2021-08-01 16:00] VITALS: BP 159/78
[2021-08-01 20:00] VITALS: BP 132/81
[2021-08-01] MEDS: INSULIN GLARGINE 100 UNITS/ML SUBCUT SCH (22:00)
[2021-08-02] VITALS: BP 128/78
[2021-08-02 04:00] VITALS: BP 126/76
[2021-08-02] MEDS: CEFAZOLIN 2,000 MG in DEXT 5% WATER 100 ML IV SCH ×3 (05:52→22:13)
[2021-08-02] MEDS: BLOOD SUGAR DIAGNOSTIC STRIP TEST SCH ×4 (07:20→21:00)
[2021-08-02] MEDS: INSULIN LISPRO 100 UNITS/ML SUBCUT SCH ×4 (07:50→21:00)
[2021-08-02 08:00] VITALS: BP 123/80
[2021-08-02] MEDS: SODIUM CHLORIDE 0.9% 1,000 ML IV SCH ×2 (08:15→18:15)
[2021-08-02] MEDS: FAMOTIDINE 20MG TABLET PO SCH ×2 (10:36→22:13)
[2021-08-02] MEDS: ASCORBIC ACID 500 MG TABLET PO SCH ×2 (10:37→22:13)
[2021-08-02] MEDS: ZINC SULFATE 220 MG ( 50 ) CAPSULE PO SCH (10:37)
[2021-08-02] MEDS: ASPIRIN 325MG EC TABLET PO SCH (10:37)
[2021-08-02] MEDS: ENOXAPARIN 30MG/0.3ML SYR SUBCUT SCH (10:47)
[2021-08-02 12:00] VITALS: BP 123/78
[2021-08-02 16:00] VITALS: BP 143/88
[2021-08-02] MEDS: CHOLECALCIFEROL (D3) 1000 UNIT TABLET PO SCH (18:56)
[2021-08-02 20:00] VITALS: BP 137/82
[2021-08-02] MEDS: INSULIN GLARGINE 100 UNITS/ML SUBCUT SCH (22:27)
[2021-08-03] VITALS: BP 143/83
[2021-08-03 04:00] VITALS: BP 140/83
[2021-08-03] MEDS: SODIUM CHLORIDE 0.9% 1,000 ML IV SCH ×2 (04:15→13:17)
[2021-08-03] MEDS: CEFAZOLIN 2,000 MG in DEXT 5% WATER 100 ML IV SCH ×3 (05:47→22:45)
[2021-08-03] MEDS: BLOOD SUGAR DIAGNOSTIC STRIP TEST SCH ×4 (06:48→21:00)
[2021-08-03] MEDS: INSULIN LISPRO 100 UNITS/ML SUBCUT SCH ×4 (07:37→22:46)
[2021-08-03 08:00] VITALS: BP 136/84
[2021-08-03] MEDS: ZINC SULFATE 220 MG ( 50 ) CAPSULE PO SCH (08:11)
[2021-08-03] MEDS: ENOXAPARIN 30MG/0.3ML SYR SUBCUT SCH (08:11)
[2021-08-03] MEDS: CHOLECALCIFEROL (D3) 1000 UNIT TABLET PO SCH (08:11)
[2021-08-03] MEDS: ASCORBIC ACID 500 MG TABLET PO SCH ×2 (08:11→22:45)
[2021-08-03] MEDS: FAMOTIDINE 20MG TABLET PO SCH ×2 (08:11→22:46)
[2021-08-03] MEDS: ASPIRIN 325MG EC TABLET PO SCH (08:11)
[2021-08-03 12:00] VITALS: BP 131/81
[2021-08-03 16:00] VITALS: BP 152/82
[2021-08-03 20:00] VITALS: BP 152/80
[2021-08-03] MEDS: INSULIN GLARGINE 100 UNITS/ML SUBCUT SCH (23:10)
[2021-08-04] VITALS: BP 124/82
[2021-08-04] MEDS: SODIUM CHLORIDE 0.9% 1,000 ML IV SCH ×3 (00:29→23:14)
[2021-08-04 04:00] VITALS: BP 121/82
[2021-08-04] MEDS: CEFAZOLIN 2,000 MG in DEXT 5% WATER 100 ML IV SCH ×3 (06:00→23:13)
[2021-08-04] MEDS: BLOOD SUGAR DIAGNOSTIC STRIP TEST SCH ×4 (06:01→21:00)
[2021-08-04] MEDS: INSULIN LISPRO 100 UNITS/ML SUBCUT SCH ×4 (06:01→21:00)
[2021-08-04 08:00] VITALS: BP 110/75
[2021-08-04] MEDS: FAMOTIDINE 20MG TABLET PO SCH ×2 (08:58→23:01)
[2021-08-04] MEDS: ZINC SULFATE 220 MG ( 50 ) CAPSULE PO SCH (08:58)
[2021-08-04] MEDS: ASCORBIC ACID 500 MG TABLET PO SCH ×2 (08:58→23:00)
[2021-08-04] MEDS: ASPIRIN 325MG EC TABLET PO SCH (08:58)
[2021-08-04] MEDS: CHOLECALCIFEROL (D3) 1000 UNIT TABLET PO SCH (08:58)
[2021-08-04] MEDS: ENOXAPARIN 30MG/0.3ML SYR SUBCUT SCH (08:59)
[2021-08-04 12:00] VITALS: BP 113/74
[2021-08-04 16:00] VITALS: BP 120/72
[2021-08-04 20:00] VITALS: BP 135/84
[2021-08-04] MEDS: INSULIN GLARGINE 100 UNITS/ML SUBCUT SCH (22:00)
[2021-08-05] VITALS: BP 118/70
[2021-08-05 04:00] VITALS: BP 128/84
[2021-08-05] MEDS: CEFAZOLIN 2,000 MG in DEXT 5% WATER 100 ML IV SCH ×3 (05:33→21:05)
[2021-08-05] MEDS: SODIUM CHLORIDE 0.9% 1,000 ML IV SCH ×2 (05:39→17:06)
[2021-08-05] MEDS: INSULIN LISPRO 100 UNITS/ML SUBCUT SCH ×4 (07:50→20:39)
[2021-08-05] MEDS: BLOOD SUGAR DIAGNOSTIC STRIP TEST SCH ×4 (07:56→20:35)
[2021-08-05 08:00] VITALS: BP 130/84
[2021-08-05] MEDS: FAMOTIDINE 20MG TABLET PO SCH ×2 (09:25→20:36)
[2021-08-05] MEDS: ASPIRIN 325MG EC TABLET PO SCH (09:25)
[2021-08-05] MEDS: CHOLECALCIFEROL (D3) 1000 UNIT TABLET PO SCH (09:25)
[2021-08-05] MEDS: ASCORBIC ACID 500 MG TABLET PO SCH ×2 (09:25→20:36)
[2021-08-05] MEDS: ZINC SULFATE 220 MG ( 50 ) CAPSULE PO SCH (09:25)
[2021-08-05] MEDS: ENOXAPARIN 30MG/0.3ML SYR SUBCUT SCH (09:26)
[2021-08-05 12:00] VITALS: BP 127/76
[2021-08-05 16:00] VITALS: BP 132/78
[2021-08-05 20:00] VITALS: BP 135/85
[2021-08-05] MEDS: INSULIN GLARGINE 100 UNITS/ML SUBCUT SCH (22:00)
[2021-08-06] VITALS: BP 129/77
[2021-08-06] MEDS: SODIUM CHLORIDE 0.9% 1,000 ML IV SCH ×3 (01:27→21:50)
[2021-08-06 04:00] VITALS: BP 124/85
[2021-08-06] MEDS: CEFAZOLIN 2,000 MG in DEXT 5% WATER 100 ML IV SCH ×3 (05:46→21:50)
[2021-08-06] MEDS: BLOOD SUGAR DIAGNOSTIC STRIP TEST SCH ×5 (06:40→21:27)
[2021-08-06] MEDS: INSULIN LISPRO 100 UNITS/ML SUBCUT SCH ×4 (07:38→21:00)
[2021-08-06 08:00] VITALS: BP 116/63
[2021-08-06] MEDS: ASPIRIN 325MG EC TABLET PO SCH (09:03)
[2021-08-06] MEDS: ASCORBIC ACID 500 MG TABLET PO SCH ×2 (09:03→21:50)
[2021-08-06] MEDS: FAMOTIDINE 20MG TABLET PO SCH ×2 (09:03→21:50)
[2021-08-06] MEDS: CHOLECALCIFEROL (D3) 1000 UNIT TABLET PO SCH (09:03)
[2021-08-06] MEDS: ENOXAPARIN 30MG/0.3ML SYR SUBCUT SCH (09:04)
[2021-08-06] MEDS: ZINC SULFATE 220 MG ( 50 ) CAPSULE PO SCH (09:51)
[2021-08-06 12:00] VITALS: BP 130/81
[2021-08-06 16:00] VITALS: BP 136/77
[2021-08-06 20:00] VITALS: BP 125/80
[2021-08-06] MEDS: INSULIN GLARGINE 100 UNITS/ML SUBCUT SCH (21:51)
[2021-08-07] VITALS: BP 137/79
[2021-08-07 04:00] VITALS: BP 115/76
[2021-08-07] MEDS: CEFAZOLIN 2,000 MG in DEXT 5% WATER 100 ML IV SCH ×2 (04:58→12:51)
[2021-08-07] MEDS: BLOOD SUGAR DIAGNOSTIC STRIP TEST SCH ×4 (06:50→20:51)
[2021-08-07 07:52] LABS: BASOPHILS % 0.9 % (0.0-2.0); EOSINOPHILS % 1.7 % (0.0-5.0); HEMATOCRIT. 23.8 % (42.0-52.0); HEMOGLOBIN. 8.2 g/dL (14.0-18.0); LYMPHOCYTES % 25.7 % (20.0-50.0); MEAN CORPUSCULAR HEMOGLOBIN 28.6 pg (28.0-32.0); MEAN CORPUSCULAR VOLUME 82.4 fL (80.0-94.0); MEAN PLATELET VOLUME 6.4 fl (7.4-10.4); MONOCYTES % 9.6 % (2.0-8.0); NEUTROPHILS % 62.1 % (40.0-76.0); PLATELET 522 x1000/uL (130-400); RED BLOOD CELL COUNT 2.88 mill/uL (4.7-6.1); RED CELL DISTRIBUTION WIDTH 17.2 % (11.6-14.6)
[2021-08-07 08:00] VITALS: BP 136/88
[2021-08-07 08:10] LABS: CHLORIDE 101 mEq/L (98-107)
[2021-08-07] MEDS: SODIUM CHLORIDE 0.9% 1,000 ML IV SCH ×2 (08:15→18:51)
[2021-08-07] MEDS: ZINC SULFATE 220 MG ( 50 ) CAPSULE PO SCH (08:26)
[2021-08-07] MEDS: CHOLECALCIFEROL (D3) 1000 UNIT TABLET PO SCH (08:26)
[2021-08-07] MEDS: ASCORBIC ACID 500 MG TABLET PO SCH ×2 (08:27→21:26)
[2021-08-07] MEDS: ASPIRIN 325MG EC TABLET PO SCH (08:27)
[2021-08-07] MEDS: FAMOTIDINE 20MG TABLET PO SCH ×2 (08:27→21:26)
[2021-08-07] MEDS: ENOXAPARIN 30MG/0.3ML SYR SUBCUT SCH (08:27)
[2021-08-07] MEDS: INSULIN LISPRO 100 UNITS/ML SUBCUT SCH ×4 (08:44→21:29)
[2021-08-07 12:00] VITALS: BP 131/78
[2021-08-07 16:00] VITALS: BP 136/82
[2021-08-07 20:00] VITALS: BP 126/85
[2021-08-07] MEDS: INSULIN GLARGINE 100 UNITS/ML SUBCUT SCH (21:30)
[2021-08-08] VITALS: BP 137/85
[2021-08-08] MEDS: CEFAZOLIN 2,000 MG in DEXT 5% WATER 100 ML IV SCH ×4 (03:34→21:41)
[2021-08-08] MEDS: SODIUM CHLORIDE 0.9% 1,000 ML IV SCH ×2 (03:37→13:53)
[2021-08-08 04:00] VITALS: BP 135/85
[2021-08-08] MEDS: BLOOD SUGAR DIAGNOSTIC STRIP TEST SCH ×4 (06:52→21:00)
[2021-08-08] MEDS: INSULIN LISPRO 100 UNITS/ML SUBCUT SCH ×4 (06:52→21:00)
[2021-08-08 08:00] VITALS: BP 131/83
[2021-08-08] MEDS: FAMOTIDINE 20MG TABLET PO SCH ×2 (09:25→21:41)
[2021-08-08] MEDS: ASCORBIC ACID 500 MG TABLET PO SCH ×2 (09:25→21:41)
[2021-08-08] MEDS: ZINC SULFATE 220 MG ( 50 ) CAPSULE PO SCH (09:25)
[2021-08-08] MEDS: ASPIRIN 325MG EC TABLET PO SCH (09:25)
[2021-08-08] MEDS: ENOXAPARIN 30MG/0.3ML SYR SUBCUT SCH (09:26)
[2021-08-08] MEDS: CHOLECALCIFEROL (D3) 1000 UNIT TABLET PO SCH (09:26)
[2021-08-08 12:00] VITALS: BP 129/78
[2021-08-08] MEDS ORDERED: [UNRECOGNIZED DRUG - REMARK] XX SCH (14:00)
[2021-08-08 16:00] VITALS: BP 123/78
[2021-08-08 20:00] VITALS: BP 139/83
[2021-08-08] MEDS: INSULIN GLARGINE 100 UNITS/ML SUBCUT SCH (22:00)
[2021-08-09] VITALS: BP 102/75
[2021-08-09] MEDS: SODIUM CHLORIDE 0.9% 1,000 ML IV SCH ×2 (00:15→06:01)
[2021-08-09 04:00] VITALS: BP 112/81
[2021-08-09] MEDS: CEFAZOLIN 2,000 MG in DEXT 5% WATER 100 ML IV SCH ×3 (06:01→21:58)
[2021-08-09] MEDS: INSULIN LISPRO 100 UNITS/ML SUBCUT SCH ×4 (07:50→21:00)
[2021-08-09] MEDS: BLOOD SUGAR DIAGNOSTIC STRIP TEST SCH ×4 (07:58→20:37)
[2021-08-09 08:00] VITALS: BP 139/85
[2021-08-09] MEDS: ASPIRIN 325MG EC TABLET PO SCH (08:37)
[2021-08-09] MEDS: ZINC SULFATE 220 MG ( 50 ) CAPSULE PO SCH (08:37)
[2021-08-09] MEDS: ASCORBIC ACID 500 MG TABLET PO SCH ×2 (08:37→20:33)
[2021-08-09] MEDS: CHOLECALCIFEROL (D3) 1000 UNIT TABLET PO SCH (08:37)
[2021-08-09] MEDS: FAMOTIDINE 20MG TABLET PO SCH ×2 (08:37→20:32)
[2021-08-09] MEDS: ENOXAPARIN 30MG/0.3ML SYR SUBCUT SCH (08:37)
[2021-08-09 12:00] VITALS: BP 135/81
[2021-08-09 16:00] VITALS: BP 124/78
[2021-08-09 20:00] VITALS: BP 141/85
[2021-08-09] MEDS: INSULIN GLARGINE 100 UNITS/ML SUBCUT SCH (22:23)
[2021-08-10] VITALS: BP 127/72
[2021-08-10 04:00] VITALS: BP 122/78
[2021-08-10] MEDS: CEFAZOLIN 2,000 MG in DEXT 5% WATER 100 ML IV SCH ×3 (05:03→21:04)
[2021-08-10] MEDS: INSULIN LISPRO 100 UNITS/ML SUBCUT SCH ×4 (07:42→20:56)
[2021-08-10] MEDS: BLOOD SUGAR DIAGNOSTIC STRIP TEST SCH ×4 (07:42→20:56)
[2021-08-10 08:00] VITALS: BP 118/79
[2021-08-10] MEDS: FAMOTIDINE 20MG TABLET PO SCH ×2 (09:25→20:45)
[2021-08-10] MEDS: ZINC SULFATE 220 MG ( 50 ) CAPSULE PO SCH (09:25)
[2021-08-10] MEDS: CHOLECALCIFEROL (D3) 1000 UNIT TABLET PO SCH (09:25)
[2021-08-10] MEDS: ASCORBIC ACID 500 MG TABLET PO SCH ×2 (09:25→20:45)
[2021-08-10] MEDS: ASPIRIN 325MG EC TABLET PO SCH (09:25)
[2021-08-10] MEDS: ENOXAPARIN 30MG/0.3ML SYR SUBCUT SCH (09:26)
[2021-08-10 12:00] VITALS: BP 112/75
[2021-08-10] MEDS: SODIUM CHLORIDE 0.9% 1,000 ML IV SCH (15:28)
[2021-08-10 16:00] VITALS: BP 118/69
[2021-08-10 20:00] VITALS: BP 109/74
[2021-08-11] VITALS: BP 141/78
[2021-08-11] MEDS: SODIUM CHLORIDE 0.9% 1,000 ML IV SCH ×2 (01:56→13:26)
[2021-08-11 04:00] VITALS: BP 126/78
[2021-08-11] MEDS: CEFAZOLIN 2,000 MG in DEXT 5% WATER 100 ML IV SCH ×3 (06:01→21:43)
[2021-08-11] MEDS: BLOOD SUGAR DIAGNOSTIC STRIP TEST SCH ×2 (06:02→12:20)
[2021-08-11] MEDS: INSULIN LISPRO 100 UNITS/ML SUBCUT SCH ×3 (07:50→18:39)
[2021-08-11 08:00] VITALS: BP 132/83
[2021-08-11] MEDS: ENOXAPARIN 30MG/0.3ML SYR SUBCUT SCH (08:01)
[2021-08-11] MEDS: CHOLECALCIFEROL (D3) 1000 UNIT TABLET PO SCH (08:01)
[2021-08-11] MEDS: ASCORBIC ACID 500 MG TABLET PO SCH ×2 (08:02→21:43)
[2021-08-11] MEDS: ASPIRIN 325MG EC TABLET PO SCH (08:02)
[2021-08-11] MEDS: FAMOTIDINE 20MG TABLET PO SCH ×2 (08:02→21:43)
[2021-08-11] MEDS: ZINC SULFATE 220 MG ( 50 ) CAPSULE PO SCH (08:02)
[2021-08-11 12:00] VITALS: BP 117/76
[2021-08-11 16:00] VITALS: BP 105/68
[2021-08-11 20:00] VITALS: BP 109/71
[2021-08-11] MEDS: INSULIN GLARGINE 100 UNITS/ML SUBCUT SCH (21:50)
[2021-08-12] VITALS: BP 112/70
[2021-08-12 04:00] VITALS: BP 116/72
[2021-08-12] MEDS: CEFAZOLIN 2,000 MG in DEXT 5% WATER 100 ML IV SCH ×3 (06:36→21:23)
[2021-08-12 08:00] VITALS: BP 126/74
[2021-08-12] MEDS: CHOLECALCIFEROL (D3) 1000 UNIT TABLET PO SCH (08:03)
[2021-08-12] MEDS: ENOXAPARIN 30MG/0.3ML SYR SUBCUT SCH (08:03)
[2021-08-12] MEDS: ZINC SULFATE 220 MG ( 50 ) CAPSULE PO SCH (08:03)
[2021-08-12] MEDS: ASPIRIN 325MG EC TABLET PO SCH (08:03)
[2021-08-12 08:36] LABS: BASOPHILS % 0.7 % (0.0-2.0); EOSINOPHILS % 1.3 % (0.0-5.0); HEMOGLOBIN. 8.4 g/dL (14.0-18.0); LYMPHOCYTES % 23.4 % (20.0-50.0); MEAN CORPUSCULAR HEMOGLOBIN 28.2 pg (28.0-32.0); MEAN CORPUSCULAR VOLUME 84.1 fL (80.0-94.0); MEAN PLATELET VOLUME 6.6 fl (7.4-10.4); NEUTROPHILS % 65.6 % (40.0-76.0); PLATELET 515 x1000/uL (130-400); RED BLOOD CELL COUNT 2.97 mill/uL (4.7-6.1); RED CELL DISTRIBUTION WIDTH 18.6 % (11.6-14.6)
[2021-08-12 09:00] LABS: CHLORIDE 105 mEq/L (98-107)
[2021-08-12] MEDS ORDERED: DEXTROSE 50% WATER 50ML SYRINGE IV PRN (11:45)
[2021-08-12] MEDS ORDERED: ACETAMINOPHEN 325MG TABLET PO PRN (11:45)
[2021-08-12 12:00] VITALS: BP 115/72
[2021-08-12] MEDS: BLOOD SUGAR DIAGNOSTIC STRIP TEST SCH ×3 (12:20→21:11)
[2021-08-12] MEDS: INSULIN LISPRO 100 UNITS/ML SUBCUT SCH ×3 (12:50→21:00)
[2021-08-12 16:00] VITALS: BP 109/73
[2021-08-12 20:00] VITALS: BP 107/56
[2021-08-12] MEDS: FAMOTIDINE 20MG TABLET PO SCH (21:10)
[2021-08-12] MEDS: ASCORBIC ACID 500 MG TABLET PO SCH (21:11)
[2021-08-12] MEDS: INSULIN GLARGINE 100 UNITS/ML SUBCUT SCH (21:16)
[2021-08-13] VITALS: BP 110/50
[2021-08-13 04:00] VITALS: BP 110/48
[2021-08-13] MEDS: CEFAZOLIN 2,000 MG in DEXT 5% WATER 100 ML IV SCH ×3 (05:36→21:11)
[2021-08-13] MEDS: INSULIN LISPRO 100 UNITS/ML SUBCUT SCH ×4 (05:40→20:42)
[2021-08-13] MEDS: BLOOD SUGAR DIAGNOSTIC STRIP TEST SCH ×3 (05:40→20:42)
[2021-08-13 08:00] VITALS: BP 112/72
[2021-08-13] MEDS: FAMOTIDINE 20MG TABLET PO SCH ×2 (09:35→21:11)
[2021-08-13] MEDS: ASCORBIC ACID 500 MG TABLET PO SCH ×2 (09:35→21:11)
[2021-08-13] MEDS: CHOLECALCIFEROL (D3) 1000 UNIT TABLET PO SCH (09:35)
[2021-08-13] MEDS: ASPIRIN 325MG EC TABLET PO SCH (09:35)
[2021-08-13] MEDS: ZINC SULFATE 220 MG ( 50 ) CAPSULE PO SCH (09:39)
[2021-08-13] MEDS: ENOXAPARIN 30MG/0.3ML SYR SUBCUT SCH (09:40)
[2021-08-13 12:00] VITALS: BP 94/71
[2021-08-13] MEDS ORDERED: LINE600T11 MT (13:36)
[2021-08-13 16:00] VITALS: BP 125/75
[2021-08-13 20:00] VITALS: BP 102/67
[2021-08-13] MEDS ORDERED: SYRI-219 SQ (20:03)
[2021-08-13] MEDS ORDERED: INSU100V37 SQ (20:03)
[2021-08-13] MEDS ORDERED: LANTUSUD SUBCUT (20:03)
[2021-08-13] MEDS ORDERED: INSULIN GLARGINE 100 UNITS/ML SUBCUT SCH (22:00)
[2021-08-14] VITALS: BP 108/62
[2021-08-14 04:00] VITALS: BP 110/68
[2021-08-14] MEDS: CEFAZOLIN 2,000 MG in DEXT 5% WATER 100 ML IV SCH ×2 (05:24→14:00)
[2021-08-14] MEDS: BLOOD SUGAR DIAGNOSTIC STRIP TEST SCH ×2 (06:55→12:10)
[2021-08-14] MEDS: INSULIN LISPRO 100 UNITS/ML SUBCUT SCH ×2 (07:50→13:36)
[2021-08-14] MEDS: ENOXAPARIN 30MG/0.3ML SYR SUBCUT SCH (08:08)
[2021-08-14] MEDS: CHOLECALCIFEROL (D3) 1000 UNIT TABLET PO SCH (08:09)
[2021-08-14] MEDS: FAMOTIDINE 20MG TABLET PO SCH (08:09)
[2021-08-14] MEDS: ASPIRIN 325MG EC TABLET PO SCH (08:09)
[2021-08-14] MEDS: ZINC SULFATE 220 MG ( 50 ) CAPSULE PO SCH (08:09)
[2021-08-14] MEDS: ASCORBIC ACID 500 MG TABLET PO SCH (08:09)
[2021-08-14 09:52] VITALS: BP 109/75
== END 2021-08-14 17:01 | disposition home or self-care (01) | DRG 720 ==
LOC: ER 09:38 → EDBD 11:35 → MICUSO 11:35 → EDBEDREQTM 11:37 → EDBEDREQ 11:37 → 8WST 22:42 → 6EST 08-01 15:23
PROVIDERS: ADMIT Internal Medicine; ATTEND Internal Medicine
PROC: 30233N1 Transfusion of Nonautologous Red Blood Cells into Peripheral Vein, Percutaneous Approach (ICD-10-PCS; principal; 2021-07-25)
DX: A41.01 Sepsis due to Methicillin susceptible Staphylococcus aureus (principal); E11.01 Type 2 diabetes mellitus with hyperosmolarity with coma; G92.8 Other toxic encephalopathy; E43 Unspecified severe protein-calorie malnutrition; J18.9 Pneumonia, unspecified organism; E87.1 Hypo-osmolality and hyponatremia; D63.8 Anemia in other chronic diseases classified elsewhere; E88.09 Other disorders of plasma-protein metabolism, not elsewhere classified; N39.0 Urinary tract infection, site not specified; B96.20 Unspecified Escherichia coli [E. coli] as the cause of diseases classified elsewhere; R65.20 Severe sepsis without septic shock; Z20.822 Contact with and (suspected) exposure to COVID-19; Z68.1 Body mass index [BMI] 19.9 or less, adult
CPT/HCPCS: 36415; 70551; 71045; 80048; 80053; 80061; 80076; 80202; 80305; 81003; 82550; 82553; 82607; 82746; 82962; 83036; 83540; 83550; 83605; 83735; 83930; 84100; 84145; 84155; 84165; 84439; 84443; 84484; 85025; 85651; 86140; 86850; 86900; 86920; 87077; 87186; 87389; 87426; 90686; 90732; 93005; 93306; 93312; 93970; 97110; 97162; 97166; 97530; 97535; 99291; C1893; J0690; J1650; J1815; J2250; J2543; J3010; J3370; J3480; J3490; J7030; J7040; J7060; P9016